=== PATIENT | male | born 1980 | race Caucasian/White ===

== ENCOUNTER 2017-10-15 20:52 | Emergency (ER) | payer OTHER ==
[~2017-10-15] VITALS: Ht 182.9 cm; Wt 68.0 kg
[~2017-10-15 20:52] MED LIST: ACETAMINOPHEN325 M1; ATIVAN1 MG; CARISOPRODOL; CARISOPRODOL 3350 MG PO; CLEOCIN HCL300 MG PO; FLEXERIL; FLEXERIL PO; HYDROCODON-ACE1 EACH PO; IBUPROFEN 800800 M1; IBUPROFEN 800800 M1 PO; IBUPROFEN 800800 MG PO; MEDROLDOSEPACK PO; NAPROSYN500 MG PO; NAPROXEN 375 M375 M1 PO; NOHOMEMEDICATIONS; NORCO 5-325 TA1 EACH PO; PENICILLIN VK250 MG PO; PENICILLIN VK500 MG PO; SYMBICORT160 MCG/4. INH; ULTRAM 50MG TAB50 MG PO; VALIUM5 MG PO
[2017-10-15 20:59] VITALS: BP 120/90
[2017-10-15] MEDS ORDERED: PENICILLIN VK500 MG PO (21:03)
[2017-10-15] MEDS ORDERED: NORCO 5-325 TA1 EACH PO (21:03)
== END 2017-10-15 21:35 | disposition home or self-care (01) ==
LOC: M.ERS 20:52
DX: K02.9 Dental caries, unspecified (principal); J44.9 Chronic obstructive pulmonary disease, unspecified; F17.210 Nicotine dependence, cigarettes, uncomplicated

== ENCOUNTER 2018-08-13 14:40 | Emergency (ER) | payer OTHER ==
[~2018-08-13] VITALS: Ht 182.9 cm; Wt 68.0 kg
[2018-08-13] MEDS ORDERED: NORCO 5-325 TA1 EAC1 PO (15:04)
[2018-08-13] MEDS ORDERED: IBUPROFEN 800800 M1 PO (15:04)
[2018-08-13] MEDS ORDERED: FLEXERIL PO (15:04)
[2018-08-13 15:08] VITALS: BP 129/68
== END 2018-08-13 15:09 | disposition home or self-care (01) ==
LOC: M.ERS 14:40
DX: S29.012A Strain of muscle and tendon of back wall of thorax, initial encounter (principal); J44.9 Chronic obstructive pulmonary disease, unspecified; G89.29 Other chronic pain; F17.210 Nicotine dependence, cigarettes, uncomplicated; X58.XXXA Exposure to other specified factors, initial encounter; Y93.89 Activity, other specified; Y92.89 Other specified places as the place of occurrence of the external cause; Y99.8 Other external cause status

== ENCOUNTER 2021-03-03 23:29 | Emergency (ER) | payer OTHER ==
[~2021-03-03] VITALS: Ht 182.9 cm; Wt 83.9 kg
[~2021-03-03 23:29] MED LIST changes: +NORCO 5-325 TA1 EAC1 PO
[2021-03-04 01:12] LABS: ABSOLUTE BASOPHILS 0.1 thou/uL (0.0-0.2); ABSOLUTE EOSINOPHILS 0.5 thou/uL (0.0-0.7); ABSOLUTE LYMPHOCYTES 2.9 thou/uL (0.8-5.3); ABSOLUTE MONOCYTES 0.9 thou/uL (0.0-1.2); ABSOLUTE NEUTROPHILS 8.4 thou/uL (1.6-8.1); BASOPHILS 0.5 %; EOSINOPHILS 3.6 %; HEMOGLOBIN 14.5 gm/dL (14.0-18.0); LYMPHOCYTES 22.9 %; MCH 30.3 pg (26.0-34.0); MCHC 32.9 g/dL (28.0-37.0); MCV 91.9 fL (80.0-100.0); MONOCYTES 7.2 %; MPV 7.9 fl. (7.2-11.1); NUCLEATED RBCS 0 /100WBC; PLATELET COUNT* 235 thou/uL (150-400); POLYS 65.8 %; RBC 4.79 mil/uL (4.50-6.00); RDW-CV 14.1 % (10.5-14.5); WBC 12.8 thou/uL (4.0-11.0)
[2021-03-04 01:35] LABS: CALCIUM 8.4 mg/dL (8.5-10.1); CREATININE 0.9 mg/dL (0.6-1.3); POTASSIUM 4.2 mmol/L (3.5-5.1)
[2021-03-04 01:40] LABS: ALBUMIN 3.3 g/dL (3.4-5.0); TOTAL BILIRUBIN 0.3 mg/dL (<0.1-1.0); TOTAL PROTEIN 6.7 g/dL (6.4-8.2)
[2021-03-04] MEDS ORDERED: HYDROCODON-ACE1 EAC7 PO (02:01)
[2021-03-04] MEDS ORDERED: TORADOL 10 MG T10 MG PO (02:01)
[2021-03-04] MEDS ORDERED: AUGMENTIN 500-1 EACH PO (02:01)
[2021-03-04 02:24] VITALS: BP 138/78
== END 2021-03-04 02:24 | disposition home or self-care (01) ==
LOC: M.ERS 23:29
PROVIDERS: Personal Emergency Response Attendant
DX: J36 Peritonsillar abscess (principal); J44.9 Chronic obstructive pulmonary disease, unspecified; F17.210 Nicotine dependence, cigarettes, uncomplicated